=== PATIENT | female | born 1995 | race Caucasian/White ===

== ENCOUNTER 2021-01-18 08:29 | Outpatient (CLI) | payer OTHER | END 2021-01-18 08:30 | disposition home or self-care (01) | LOC: CSHLAB 08:29 | PROVIDERS: ATTEND Student in an Organized Health Care Education/Training Program | DX: Z01.818 Encounter for other preprocedural examination (principal); Z20.822 Contact with and (suspected) exposure to COVID-19; Z80.3 Family history of malignant neoplasm of breast; Z14.1 Cystic fibrosis carrier; Z15.89 Genetic susceptibility to other disease | CPT/HCPCS: 84703; 85027; 86850; 86900; 86901; 93005; 93010; U0003; U0005 ==

== ENCOUNTER 2021-01-22 09:50 | Day surgery (SDC) | payer OTHER ==
[2021-01-18 10:08] LABS: Hemoglobin 13.7 g/dL (12.0-15.5); Mean Corpuscular HGB CONC 33.4 g/dL (32.0-36.0); Mean Corpuscular Hemoglobin 29.7 pg (27.0-33.0); Mean Corpuscular Volume 88.9 fl (81.6-98.3); Mean Platelet Volume 10.9 fl (7.4-10.4); Platelet Count 208 10x3/uL (150-450); RBC Distribution Width 12.4 % (11.5-14.5); Red Blood Cell (RBC) Count 4.61 10x6/uL (3.90-5.03); White Blood Cell (WBC) Count 6.8 10x3/uL (3.5-10.5)
[2021-01-18 11:23] LABS: BHCG - Serum Negative (NEGATIVE); Pregs Control Background? CLEAR/WHITE (CLR/WHITE); Pregs Control Bar Appear? YES (CONTROL BAR)
[2021-01-19 01:29] LABS: SARS-CoV-2 PCR by NAA Not Detected (NotDetected)
[2021-01-22] MEDS ORDERED: Gabapentin 300 MG CAP ONE (10:24)
[2021-01-22] MEDS ORDERED: Lidocaine 1% MPF 2 ML VIAL ONE (10:25)
[2021-01-22] MEDS ORDERED: CeleCOXIB 100 MG CAP ONE (10:25)
[2021-01-22] MEDS ORDERED: Famotidine/PF 20 mg/2ml Vial ONE (10:25)
[2021-01-22] MEDS ORDERED: Fentanyl 100 MCG/2 ML VIAL ONE (12:28)
[2021-01-22] MEDS ORDERED: Midazolam HCl 2 mg/2 ml Vial ONE (12:28)
[2021-01-22] MEDS ORDERED: Dexamethasone 20 MG/5 ML VIAL ONE (12:28)
[2021-01-22] MEDS ORDERED: Bupivacaine PF 0.5% 30 ML VIAL ONE (12:28)
[2021-01-22] MEDS ORDERED: Lidocaine 1% PF 5 ML VIAL ONE (12:28)
[2021-01-22] MEDS ORDERED: EPINEPHrine 1 MG/ML AMP ONE (12:28)
[2021-01-22] MEDS ORDERED: Rocuronium Bromide 10 MG/ML (10ML VIAL) ONE (12:28)
[2021-01-22] MEDS ORDERED: PROPOFOL 20 ML ONE (12:28)
[2021-01-22] MEDS ORDERED: Ondansetron PF 4 MG/2 ML Vial ONE (12:28)
[2021-01-22] MEDS ORDERED: Ketorolac Tromethamine 30 MG/ML VIAL ONE (12:30)
[2021-01-22] MEDS ORDERED: PHENYLEPHRINE-NS 100 MCG/ML 10 ML SYRINGE ONE (13:02)
[2021-01-22] MEDS ORDERED: SUGAMMADEX SODIUM 500 MG/5 ML VIAL ONE (13:17)
== END 2021-01-22 16:25 | disposition home or self-care (01) ==
LOC: CSHSDC 09:50
PROVIDERS: ATTEND Student in an Organized Health Care Education/Training Program
PROC: 0UT74ZZ Resection of Bilateral Fallopian Tubes, Percutaneous Endoscopic Approach (ICD-10-PCS; principal; 2021-01-22)
DX: Z30.2 Encounter for sterilization (principal); E74.89 Other specified disorders of carbohydrate metabolism; I44.0 Atrioventricular block, first degree; Z14.1 Cystic fibrosis carrier; Z80.3 Family history of malignant neoplasm of breast; Z88.2 Allergy status to sulfonamides; Z91.040 Latex allergy status; Z91.048 Other nonmedicinal substance allergy status
CPT/HCPCS: 84703; 85027; 86850; 86900; 86901; 88307; J0171; J1100; J1885; J2250; J2405; J2704; J3010; S0020; S0028; U0003; U0005